=== PATIENT | female | born 1970 | race American Indian/Alaskan Native ===

== ENCOUNTER 2018-08-13 13:46 | Outpatient (CLI) | payer OTHER ==
--- NOTE | 2018-08-13 15:01 | XRay Report ---
AP AND LATERAL LUMBOSACRAL SPINE: History: Lower back pain. The vertebral bodies are well mineralized and normal in alignment and vertebral height with well preserved interspace distances. The visualized portions of the posterior elements are normal. IMPRESSION: Unremarkable lumbar spine films.
--- NOTE | 2018-08-13 15:02 | XRay Report ---
AP AND LATERAL CERVICAL SPINE: History: Neck pain. Mild to moderate degenerative disc disease is identified at C5-6. The remaining levels are within normal limits. The posterior elements and facet joints are unremarkable. No evidence for fracture, subluxation or bone lesion. The prevertebral soft tissues are within normal limits. IMPRESSION: Uqwu-an-oznnbhuo degenerative disc disease at C5-6.
== END 2018-08-13 13:47 | disposition home or self-care (01) ==
LOC: XRAY 13:46
PROVIDERS: ATTEND Internal Medicine
DX: M50.322 Other cervical disc degeneration at C5-C6 level (principal); M54.5 Low back pain
CPT/HCPCS: 72040; 72100